=== PATIENT | male | born 1960 | race Caucasian/White ===

== ENCOUNTER 2024-12-08 06:14 | Day surgery (SDC) | payer BC, SELFPAY ==
[2024-12-03 11:22] LABS: ALT (SGPT) 24 U/L (0-50); AST (SGOT) 25 U/L (17-59); Albumin 4.7 g/dl (3.5-5.0); Alkaline Phosphatase 52 U/L (38-126); Blood Urea Nitrogen 13 mg/dl (9-20); Calcium 9.5 mg/dl (8.4-10.2); Carbon Dioxide 23 mmol/L (22-30); Chloride 109 mmol/L (98-107); Glucose 96 mg/dl (70-99); Potassium 4.4 mmol/L (3.5-5.1); Sodium 142 mmol/L (135-145); Total Bilirubin 0.7 mg/dl (0.2-1.3); eGFR > 60.00
[2024-12-03 13:24] VITALS: BMI 20.5
[2024-12-08] VITALS (11 sets, daily range): BP systolic 78–130; BP diastolic 55–82; BMI 20.5
[2024-12-08] MEDS: TYLENOL 1000 MG PO (14:31)
[2024-12-08] MEDS: CELEBREX 200 MG PO (14:31)
[2024-12-08] MEDS: NORMOSOL-R/PLASMALYTE-A 1000 IV (14:38)
[2024-12-08] MEDS: ROXICODONE 5 MG PO (19:13)
== END 2024-12-08 19:45 | disposition home or self-care (01) ==
LOC: SDS 06:14
PROVIDERS: ATTENDING PHYSICIAN Orthopaedic Surgery Hand Surgery; FAMILY PHYSICIAN Physician Assistant Medical
DX: S62.305A Unspecified fracture of fourth metacarpal bone, left hand, initial encounter for closed fracture (principal); S62.324A Displaced fracture of shaft of fourth metacarpal bone, right hand, initial encounter for closed fracture; X58.XXXA Exposure to other specified factors, initial encounter
CPT/HCPCS: 26615; 36415; 80053; 93005; C1713

== ENCOUNTER 2025-01-31 15:21 | Outpatient (RCR) | payer BC, SELFPAY | END 2025-01-31 23:59 | disposition home or self-care (01) | LOC: ROT 15:21 | PROVIDERS: ATTENDING PHYSICIAN Orthopaedic Surgery Hand Surgery; FAMILY PHYSICIAN Physician Assistant Medical | DX: S62.234D Other nondisplaced fracture of base of first metacarpal bone, right hand, subsequent encounter for fracture with routine healing (principal); Z47.89 Encounter for other orthopedic aftercare (principal); Z73.6 Limitation of activities due to disability; W19.XXXD Unspecified fall, subsequent encounter | CPT/HCPCS: 97018; 97022; 97110; 97140; 97166; 97535; 97760 ==

== ENCOUNTER 2025-03-03 14:03 | Outpatient (RCR) | payer BC, SELFPAY | END 2025-03-03 23:59 | disposition home or self-care (01) | LOC: ROT 14:03 | PROVIDERS: ATTENDING PHYSICIAN Orthopaedic Surgery Hand Surgery; FAMILY PHYSICIAN Physician Assistant Medical | DX: S62.234D Other nondisplaced fracture of base of first metacarpal bone, right hand, subsequent encounter for fracture with routine healing (principal); Z47.89 Encounter for other orthopedic aftercare (principal); S62.303D Unspecified fracture of third metacarpal bone, left hand, subsequent encounter for fracture with routine healing; S62.305D Unspecified fracture of fourth metacarpal bone, left hand, subsequent encounter for fracture with routine healing; W19.XXXD Unspecified fall, subsequent encounter; Z73.6 Limitation of activities due to disability | CPT/HCPCS: 97018; 97022; 97110; 97140 ==

== ENCOUNTER 2025-03-22 15:54 | Outpatient (RCR) | payer BC, SELFPAY | END 2025-03-22 23:59 | disposition home or self-care (01) | LOC: ROT 15:54 | PROVIDERS: ATTENDING PHYSICIAN Orthopaedic Surgery Hand Surgery; FAMILY PHYSICIAN Physician Assistant Medical | DX: S62.234D Other nondisplaced fracture of base of first metacarpal bone, right hand, subsequent encounter for fracture with routine healing (principal); Z47.89 Encounter for other orthopedic aftercare (principal); Z73.6 Limitation of activities due to disability; W19.XXXD Unspecified fall, subsequent encounter | CPT/HCPCS: 97018; 97110; 97140 ==